=== PATIENT | male | born 1930 | race Caucasian/White ===

== ENCOUNTER 2016-12-05 08:10 | Emergency (ER) | payer MEDICARE ==
[2016-12-05] MEDS ORDERED: ASPIRIN CHEWTAB 81 MG TABLET ONE (08:58)
[2016-12-05] MEDS ORDERED: MECLIZINE HCL 25 MG TABLET ONE (08:58)
[2016-12-05 09:10] LABS: ABSOLUTE NEUTROPHIL COUNT 3.7 K/mm3 (1.8-7.7); BASO % 0.7 % (0.2-1.0); EOS # 0.2 (0.0-0.5); EOS % 3.2 % (0.9-2.9); HEMATOCRIT 41.5 % (32.0-52.0); HEMOGLOBIN 14.2 gm/l (14.0-18.0); IMM NEUT% 0.2 % (0-1); LYMPH # 1.6 (1.0-4.8); LYMPH % 26.8 % (15-45); MEAN CELL VOLUME 92.8 fl (80.0-94.0); MEAN CORPUSCULAR HEMOGLOBIN 31.8 pg (27.0-31.0); MEAN CORPUSCULAR HGB CONC 34.2 g/dl (33.0-37.0); MEAN PLATELET VOLUME 11.1 fl (7.4-10.4); MONO # 0.5 (0.0-0.8); MONO % 8.2 % (4-12); NEUT % 60.9 % (43-75); PLATELET COUNT 165 K/mm3 (130-400); RED CELL DISTRIBUTION WIDTH 11.7 % (11.5-14.5)
[2016-12-05 09:29] LABS: ALB/GLOB RATIO 1.4 (>1.0); ALBUMIN 3.8 gm/dL (3.5-5.7); CALCIUM 9.3 mg/dL (8.6-10.3)
--- NOTE | 2016-12-05 09:46 | CT ---
HEAD CT WITHOUT CONTRAST HISTORY: Altered gait. No intravenous contrast administered. Contiguous axial images acquired from skull base to vertex. COMPARISON: MRI from 10/04/2011, CT exam from 12/17/2004. BRAIN VOLUME: Redemonstration of malacic changes involving the temporal lobes bilaterally, seen on prior MRI. There is mild to moderate diffuse volume loss, stable. WHITE MATTER: Periventricular hypoattenuation compatible with microvascular disease. VENTRICULAR SIZE:No gross ventriculomegaly. FOCAL MASS EFFECT:None. ACUTE INTRACRANIAL HEMORRHAGE:None. CALVARIUM:Grossly intact. VISIBLE PARANASAL SINUSES AND MASTOID AIR CELLS: Polypoid mucosal thickening of the left maxillary sinus. IMPRESSION: No gross mass effect, ventriculomegaly, or acute intracranial hemorrhage. 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 Findings discussed with Dr. Upton of the Emergency Medicine clinical service on 12/05/2016 at 0942 hours.
[2016-12-05 11:21] LABS: URINE BILIRUBIN NEGATIVE (NEGATIVE); URINE BLOOD NEGATIVE (NEGATIVE); URINE GLUCOSE (UA) NEGATIVE (NEGATIVE); URINE LEUKOCYTE ESTERASE NEGATIVE (NEGATIVE); URINE NITRITE NEGATIVE (NEGATIVE); URINE PROTEIN NEGATIVE (NEGATIVE); URINE UROBILINOGEN NORMAL (0-1 mg/dl)
[2016-12-05 11:23] LABS: URINE APPEARANCE CLEAR; URINE COLOR YELLOW
--- NOTE | 2016-12-05 12:02 | RAD ---
LEFT KNEE 4 VIEWS HISTORY: Left knee pain. Frontal, lateral, and bilateral oblique views of the left knee. COMPARISON: None. ALIGNMENT: Grossly unremarkable.. JOINT SPACES: Preserved. Early osteophyte formation with enthesophyte formation along the patellar tendon. JOINT EFFUSION: None identified. Mild soft tissue prominence of infrapatellar soft tissues. CALCIFICATIONS: Minor vascular calcifications.. FRACTURE: No displaced acute fracture. 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 Enthesophyte formation, correlate for patellar tendinopathy.
--- NOTE | 2016-12-05 12:05 | RAD ---
LEFT HIP AND AP PELVIS SERIES HISTORY: Left hip pain, no injury. Frontal view of the pelvis with frontal and frog-leg lateral views of the left hip. PELVIC RING: Grossly intact. HIP ALIGNMENT: Grossly unremarkable. HIP JOINT SPACES: Moderate superior joint space narrowing on the left, mild to moderate superior joint space narrowing on the right. Associated rim osteophyte formation. FEMORAL HEADS: Lateralization of physeal scars. FRACTURE: No displaced fracture identified. CALCIFICATIONS: Multiple phleboliths. Coarse calcification along the left ischial tuberosity, perhaps related to hamstring tendinopathy. POSTPROCEDURAL CHANGE: Multiple pelvic surgical clips, correlate for prostatectomy. LUMBAR SPINE: Findings of lower lumbar disc and facet degeneration. IMPRESSION: 1. Osteoarthritic change of the hips, mild on the left, mild to moderate on the right. No malalignment or displaced acute fracture. Configuration of the femoral heads raises the possibility of femoroacetabular impingement. 2. Evidence of prior prostatectomy and lumbar spondylosis.
== END 2016-12-05 12:56 | disposition home or self-care (01) ==
LOC: ED 08:10
DX: R42 Dizziness and giddiness (principal); R20.2 Paresthesia of skin; F03.90 Unspecified dementia, unspecified severity, without behavioral disturbance, psychotic disturbance, mood disturbance, and anxiety; I10 Essential (primary) hypertension; Z86.73 Personal history of transient ischemic attack (TIA), and cerebral infarction without residual deficits; Z79.82 Long term (current) use of aspirin; Z79.899 Other long term (current) drug therapy
CPT/HCPCS: 85025; 80053; 81003; 84484; 73502; 73564; 70450; 99284 ×2; 93005; A9270 ×2